=== PATIENT | female | born 1975 | race Caucasian/White ===

== ENCOUNTER 2017-05-25 10:05 | Emergency (ER) | payer OTHER ==
[2017-05-25] MEDS ORDERED: ASPIRIN 81 MG TABLET, CHEWABLE PO ONE (10:31)
--- NOTE | 2017-05-25 10:37 | ER Document Report ---
ED Medical Screen (RME) - General Mode of Arrival: Wheelchair Information source: Patient TRAVEL OUTSIDE OF THE [place] IN LAST 30 DAYS: No - HPI Patient complains to provider of: Chest Pain Onset: This morning Onset/Duration: Sudden, Constant Quality of pain: Other - Tight Associated Symptoms: Other - see notes above Exacerbated by: Deep breathing, Other - palpation - Related Data Smoking: Non-smoker Frequency of alcohol use: Occasional Drug Abuse: None <AWILDA VERA - Last Filed: 05/25/17 11:19> <RENETTA CORONEL - Last Filed: 05/25/17 11:20> - General Chief Complaint: Chest Pain Stated Complaint: CHEST PAIN DIFFICULTY BREATHING Time Seen by Provider: 05/25/17 10:25 Notes: 42 year old female with history of asthma presents to the ED complaining of sudden onset tight and constant chest 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 Patient describes the pain as 'constrictive' when not palpated and sharp when palpated. Pain is exacerbated with deep breathing. Patient has had chest pain in the past (5-6 years ago), but not as severe as today. Patient denies history of blood clots, heart attack, or a pneumothorax. Patient went to Urgent Care prior to arrival and was told to come to the ED. Patient does not take any medication except for ibuprofen as needed. (AWILDA VERA) - Related Data Allergies/Adverse Reactions: erythromycin ethylsuccinate [From [facility] Allergy (Verified 09/24/15 20:13) Past Medical History - General Information source: Patient - Social History Cigarette use (# per day): No Chew tobacco use (# tins/day): No Frequency of alcohol use: Occasional Drug Abuse: None - Past Medical History Cardiac Medical History: Denies: Hx Hypercholesterolemia, Hx Hypertension Pulmonary Medical History: Reports: Hx Asthma Neurological Medical History: Reports: Hx Migraine Endocrine Medical History: Denies: Hx Diabetes Mellitus Type 2 Renal/ Medical History: Reports: Hx Kidney Stones. Denies: Hx Peritoneal Dialysis Past Surgical History: Reports: Hx Breast Surgery - Biopsy, Hx Section - x 2, Hx Hysterectomy, Hx Oral Surgery - wisdom teeth - Immunizations Hx Diphtheria, Pertussis, Tetanus Vaccination: Yes - < 5 yrs <AWILDA VERA - Last Filed: 05/25/17 11:19> Review of Systems - Review of Systems Constitutional: No symptoms reported EENT: No symptoms reported Cardiovascular: See HPI, Chest pain Respiratory: See HPI, Hurts to breathe Gastrointestinal: No symptoms reported Genitourinary: No symptoms reported Female Genitourinary: No symptoms reported Musculoskeletal: No symptoms reported Skin: No symptoms reported Hematologic/Lymphatic: No symptoms reported Neurological/Psychological: No symptoms reported -: Yes All other systems reviewed and negative <AWILDA VERA - Last Filed: 05/25/17 11:19> Physical Exam - General General appearance: Alert In distress: None - HEENT Head: Normocephalic, Atraumatic - Respiratory Respiratory status: No respiratory distress Chest status: Tender Breath sounds: Normal. No: Wheezing Chest palpation: Tender - Reproducible anterior chest wall pain. Patient states the pain is exacerbated and goes from tight to sharp when palpated. - Cardiovascular Rhythm: Regular Heart sounds: Normal auscultation Murmur: No Friction rub: No Gallop: None auscultated - Psychological Associated symptoms: Normal affect, Normal mood <AWILDA VERA - Last Filed: 05/25/17 11:19> - Vital signs Vitals: Temp Pulse Resp BP Pulse Ox 98.0 F 73 20 118/39 L 98 05/25/17 10:16 05/25/17 10:16 05/25/17 10:16 05/25/17 10:16 05/25/17 10:16 Course - Laboratory Result Diagrams: 05/25/17 10:51 05/25/17 10:51 <AWILDA VERA - Last Filed: 05/25/17 11:19> - Laboratory Result Diagrams: 05/25/17 10:51 05/25/17 10:51 <RENETTA CORONEL - Last Filed: 05/25/17 11:20> - Vital Signs Vital signs: Temp Pulse Resp BP Pulse Ox 98.0 F 73 20 118/39 L 98 05/25/17 10:16 05/25/17 10:16 05/25/17 10:16 05/25/17 10:16 05/25/17 10:16 Scribe Documentation - Scribe Written by Magnus:: Magnus Amaya, 05/25/2017 1057 acting as scribe for :: Hanh <AWILDA VERA - Last Filed: 05/25/17 11:19>
[2017-05-25 11:19] LABS: ABSOLUTE EOSINOPHILS # (AUTO) 0.1 10^3/uL (0.0-0.6); ABSOLUTE LYMPHOCYTES (AUTO) 1.6 10^3/uL (0.5-4.7); ABSOLUTE MONOCYTES (AUTO) 0.4 10^3/uL (0.1-1.4); ABSOLUTE NEUT (AUTO) 3.9 10^3/uL (1.7-8.2); BASOPHILS % (AUTO) 0.3 % (0-2); EOSINOPHILS % (AUTO) 1.8 % (0-6); HEMATOCRIT 44.1 % (36.0-47.0); HEMOGLOBIN 14.8 g/dL (12.0-15.5); HGB HCT DIFFERENCE 0.3; LYMPHOCYTES % (AUTO) 26.5 % (13-45); MEAN CORPUSCULAR HEMOGLOBIN 28.5 pg (27.0-33.4); MEAN CORPUSCULAR HGB CONC 33.6 g/dL (32.0-36.0); MEAN CORPUSCULAR VOLUME 85 fl (80-97); MONOCYTES % (AUTO) 6.7 % (3-13); RED BLOOD COUNT 5.21 10^6/uL (3.72-5.28); RED CELL DISTRIBUTION WIDTH 13.2 % (11.5-14.0); SEGMENTED NEUTROPHILS % (AUTO) 64.7 % (42-78)
[2017-05-25 11:31] LABS: D-DIMER 0.54 ug/mL (0.00-0.50)
--- NOTE | 2017-05-25 11:40 | RADIOLOGY REPORT (SQ) ---
EXAM DESCRIPTION: CHEST SINGLE VIEW COMPLETED DATE/TIME: 05/25/2017 11:27 am REASON FOR STUDY: chest pain, pleuritic in nature, h/o asthma COMPARISON: 09/24/2015 EXAM PARAMETERS: NUMBER OF VIEWS: One view. TECHNIQUE: Single frontal radiographic view of the chest acquired. RADIATION DOSE: NA LIMITATIONS: None. FINDINGS: LUNGS AND PLEURA: No opacities, masses or pneumothorax. No pleural effusion. MEDIASTINUM AND HILAR STRUCTURES: No masses. Contour normal. HEART AND VASCULAR STRUCTURES: Heart normal in size. Normal vasculature. BONES: No acute findings. HARDWARE: None in the chest. OTHER: No other significant finding. IMPRESSION: NO ACUTE RADIOGRAPHIC FINDING IN THE CHEST. TECHNICAL DOCUMENTATION: JOB ID: [id number]
[2017-05-25 11:46] LABS: ALANINE AMINOTRANSFERASE 106 U/L (9-52); ALBUMIN 4.5 g/dL (3.5-5.0); ALKALINE PHOSPHATASE 93 U/L (38-126); ANION GAP 13 (5-19); ASPARTATE AMINO TRANSFERASE 51 U/L (14-36); BILIRUBIN,DIRECT 0.4 mg/dL (0.0-0.4); BILIRUBIN,TOTAL 0.4 mg/dL (0.2-1.3); BLOOD UREA NITROGEN 15 mg/dL (7-20); CALCIUM 9.7 mg/dL (8.4-10.2); CARBON DIOXIDE 26 mmol/L (22-30); CHLORIDE 107 mmol/L (98-107); CREATINE KINASE 91 U/L (30-135); CREATININE RESULT 0.71 mg/dL (0.52-1.25); GLUCOSE 91 mg/dL (75-110); LIPASE 95.3 U/L (23-300); POTASSIUM 4.1 mmol/L (3.6-5.0); SODIUM 146.1 mmol/L (137-145); TOTAL PROTEIN 7.6 g/dL (6.3-8.2)
[2017-05-25 11:51] LABS: ADD ON TESTING BLD IN LAB ACKNOWLEDGE
[2017-05-25 11:55] LABS: CREATINE KINASE MB 1.27 ng/mL (<4.55)
[2017-05-25 11:56] LABS: TROPONIN I < 0.012 ng/mL
[2017-05-25] MEDS ORDERED: NORMAL SALINE 1000 ML 1,000 ML IV ONE (12:19)
--- NOTE | 2017-05-25 12:30 | ER Document Report ---
ED Cardiac - General Chief Complaint: Chest Pain Stated Complaint: CHEST PAIN DIFFICULTY BREATHING Time Seen by Provider: 05/25/17 10:25 Mode of Arrival: Wheelchair Information source: Patient TRAVEL OUTSIDE OF THE [place] IN LAST 30 DAYS: No - HPI Patient complains to provider of: Chest pain, Chest tightness Use of: denies: Alcohol, Amphetamines, Bath salts, Caffeine, Cocaine, Decongestants, Other Was the onset of pain: Sudden When did pain begin: 0800 Is the pain a: New problem Chest pain location: Substernal Quality of pain: Pressure, Sharp, Tightness Chest pain radiation location: denies: Left jaw, Left arm, Left shoulder, Right jaw, Right arm, Right shoulder, Back, Neck, None Severity now: Mild Pain level currently: 2 Chest pain precipitating factors: none Cardiac risk factors: None Positive cardiac history: No Associated symptoms: Lightheaded - once, prior to arrival Exacerbated by: Deep breaths. denies: Denies, Sitting, Standing, Activity, Emotional stress, Coughing, Torso movement, Lying flat, Other Relieved by: Nothing - pt not aware of anything that helps. has not had any nitro or antacids. Similar symptoms previously: No Recently seen / treated by doctor: No Notes: P t is sexually active. H/o total hysterectomy >10 years ago - Related Data Allergies/Adverse Reactions: erythromycin ethylsuccinate [From [facility].] Allergy (Verified 09/24/15 20:13) Past Medical History - General Information source: Patient - Social History Smoking Status: Never Smoker Cigarette use (# per day): No Chew tobacco use (# tins/day): No Frequency of alcohol use: Occasional Drug Abuse: None Family History: Reviewed & Not Pertinent Patient has suicidal ideation: No - Past Medical History Cardiac Medical History: Denies: Hx Hypercholesterolemia, Hx Hypertension Pulmonary Medical History: Reports: Hx Asthma Neurological Medical History: Reports: Hx Migraine Endocrine Medical History: Denies: Hx Diabetes Mellitus Type 2 Renal/ Medical History: Reports: Hx Kidney Stones. Denies: Hx Peritoneal Dialysis Past Surgical History: Reports: Hx Breast Surgery - Biopsy, Hx Section - x 2, Hx Hysterectomy, Hx Oral Surgery - wisdom teeth - Immunizations Hx Diphtheria, Pertussis, Tetanus Vaccination: Yes - < 5 yrs Review of Systems - Review of Systems Notes: REVIEW OF SYSTEMS: CONSTITUTIONAL : Denies fever, chills, or sweats. Denies recent illness. EENT: Denies eye, ear, throat, or mouth pain or symptoms. Denies nasal or sinus congestion or discharge. Denies throat, tongue, or mouth swelling or difficulty swallowing. CARDIOVASCULAR: see hpi RESPIRATORY: Denies cough, cold, or chest congestion. Denies shortness of breath, difficulty breathing, or wheezing. GASTROINTESTINAL: Denies abdominal pain or distention. Denies nausea, vomiting , or diarrhea. Denies blood in vomitus, stools, or per rectum. Denies black, tarry stools. Denies constipation. GENITOURINARY: Denies difficulty urinating, painful urination, burning, frequency, blood in urine, or discharge. FEMALE GENITOURINARY: Denies vaginal bleeding, heavy or abnormal periods, irregular periods. Denies vaginal discharge or odor. MUSCULOSKELETAL: Denies back or neck pain or stiffness. Denies joint pain or swelling. SKIN: Denies rash, lesions or sores. NEUROLOGICAL: Denies confusion or altered mental status. Denies passing out or loss of consciousness. Denies dizziness or lightheadedness. Denies headache. Denies weakness or paralysis or loss of use of either side. Denies problems with gait or speech. Denies sensory loss, numbness, or tingling. Denies seizures. PSYCHIATRIC: Denies anxiety or stress. Denies depression, suicidal ideation, or homicidal ideation. ALL OTHER SYSTEMS REVIEWED AND NEGATIVE. Dictation was performed using [employer] voice recognition software Physical Exam - Vital signs Vitals: Temp Pulse Resp BP Pulse Ox 98.0 F 73 20 118/39 L 98 05/25/17 10:16 05/25/17 10:16 05/25/17 10:16 05/25/17 10:16 05/25/17 10:16 Notes: PHYSICAL EXAMINATION: GENERAL: Well-appearing, well-nourished and in no acute distress. A&Ox4 HEAD: Atraumatic, normocephalic. EYES: Pupils equal round and reactive to light, extraocular movements intact, sclera anicteric, conjunctiva are normal. ENT: Nares patent and without discharge. oropharynx clear without exudates. No tonsilar hypertrophy or erythema. Moist mucous membranes. No sinus tenderness. NECK: Normal range of motion, supple without lymphadenopathy. No rigidity/ meningismus. Non-tender. LUNGS: Breath sounds clear to auscultation bilaterally and equal. No wheezes rales or rhonchi. HEART: Regular rate and rhythm without murmurs, rubs, gallops. Chest: + tenderness to the anterior chest wall, pt describes this as the sharp pain, but different than the tightness in the chest. ABDOMEN: Soft, nontender, nondistended abdomen. No guarding, no rebound. No masses appreciated. Normal bowel sounds present. No CVA tenderness bilaterally. Musculoskeletal: FROM to passive/active. Strength 5+/5. Rommel neg b/l. Extremities: No cyanosis, clubbing, or edema b/l. Peripheral pulses 2+. Capillary refill less than 3 seconds. NEUROLOGICAL: Cranial nerves grossly intact. Normal speech, normal gait. Normal sensory, motor exams PSYCH: Normal mood, normal affect. SKIN: Warm, Dry, normal turgor, no rashes or lesions noted. Course - Re-evaluation Re-evalutation: 05/25/17 12:[address] Reed, CTA ordered d/t sx's and elevated dimer. 05/25/17 14:26 Patient is an afebrile, well-hydrated, 42-year-old female who presents the ED with chest wall pain and chest pain not otherwise specified. Vitals are stable. PE is otherwise unremarkable. Patient has a heart score of 0. D- dimer did come back slightly elevated so CTA was ordered and showed unremarkable for any acute pathology. CBC, CMP otherwise unremarkable. Cardiac enzymes 2 and EKG 2 were unremarkable for any acute pathology or changes. Patient's condition currently stable with no new concerns or complaints. Her serum qualitative hCG did come back positive with a quantity of 4.56 HCG. patient did have a total hysterectomy over 10 years ago. Reviewed with patient that she will need an evaluation with [facility] to further investigate. Low suspicion/risk for any ACS, PE, pneumothorax, pericarditis, dissection at this time. Patient is aware that her condition can change from initial presentation and she needs to monitor symptoms closely and seek medical attention with any acute changes. Naproxen Rx given today. Conservative measures for symptoms otherwise. Recheck with your PCM in 2-3 days. Recheck with the [facility] as well. Return to the ED with any worsening/concerning symptoms otherwise as reviewed discharge. Patient is in agreement. - Vital Signs Vital signs: Temp Pulse Resp BP Pulse Ox 98.0 F 73 17 117/91 H 100 05/25/17 10:16 05/25/17 10:16 05/25/17 13:01 05/25/17 13:00 05/25/17 13:01 - Laboratory Result Diagrams: 05/25/17 10:51 05/25/17 10:51 Laboratory results interpreted by me: 05/25/17 05/25/17 05/25/17 10:51 10:51 10:51 D-Dimer 0.54 H Sodium 146.1 H AST 51 H ALT 106 H Serum HCG, Qual POSITIVE H Discharge - Discharge Clinical Impression: Chest wall pain Chest pain, unspecified Qualifiers: Chest pain type: unspecified Qualified Code(s): R07.9 - Chest pain, unspecified Condition: Stable Disposition: HOME, SELF-CARE Instructions: Chest Wall Pain ([facility]), Chest Pain of Unclear Cause ([facility]), Anti- Inflammatory Medication ([facility]) Additional Instructions: Rest, Ice Tylenol/ibuprofen as needed Light stretches daily Moist heat and massage may help F/u with your PCP in 2-3 days for a recheck Recheck with OBGYN in 3-5 days. Return to the ED with any worsening symptoms and/or development of fever, headache, chest pain, palpitations, syncope, shortness of breath, trouble breathing, abdominal pain, n/v/d, muscle weakness/paralysis, numbness/tingling, worsening pain, or other worsening symptoms that are concerning to you. Prescriptions: Naproxen 500 mg PO BID PRN #30 tablet PRN Reason: Forms: Elevated Blood Pressure, Return to Work Referrals: JOSE J MARCH MD [ACTIVE STAFF] - Follow up in 3-5 days [facility] [Provider Group] - Follow up in 3-5 days
--- NOTE | 2017-05-25 14:24 | RADIOLOGY REPORT (SQ) ---
EXAM DESCRIPTION: CTA CHEST COMPLETED DATE/TIME: 05/25/2017 1:54 pm REASON FOR STUDY: chest pain, elevated dimer. COMPARISON: None. TECHNIQUE: CT scan of the chest performed using helical scanning technique with dynamic intravenous contrast injection. Images reviewed with lung, soft tissue and bone windows. Reconstructed coronal and sagittal MPR images reviewed. Additional 3 dimensional post-processing performed to develop Maximal Intensity Projection images (TX P). All images stored on PACS. All CT scanners at this facility use dose modulation, iterative reconstruction, and/or weight based d osing when appropriate to reduce radiation dose to as low as reasonably achievable (ALARA). [facility]: Dose Right [facility]: CareDose [facility]: Dose Right [facility]: Teradose 4D [facility]: Zuvvu CONTRAST TYPE AND DOSE: contrast/concentration: Isovue 370.00 mg/ml; Total Contrast Delivered: 82.0 ml; Total Saline Delivered: 110.0 ml Contrast bolus optimized for the pulmonary arteries. Not diagnostic for the aorta. RENAL FUNCTION: Creatinine 0.7 BUN 15 RADIATION DOSE: Up-to-date CT equipment and radiation dose reduction techniques were employed. CTDIv ol: 16.5 - 40.0 mGy. DLP: 1428 mGy-cm. . LIMITATIONS: None. FINDINGS: LUNGS AND PLEURA: No masses, infiltrates, pneumothorax. No pleural effusions, calcificati ons. AORTA AND GREAT VESSELS: No aneurysm. Contrast bolus not optimized for the aorta. HEART: No pericardial effusion. No significant coronary artery calcifications. PULMONARY ARTERIES: No emboli visualized in the main pulmonary arteries or the segmental branches. HILAR AND MEDIASTINAL STRUCTURES: No identified masses or abnormal nodes. HARDWARE: None in the chest. UPPER ABDOMEN: No significant findings. Limited exam. THYROID AND OTHER SOFT TISSUES: No masses. No adenopathy. BONES: No acute or significant finding. 3D MIPS: Confirm above findings. OTHER: No other significant finding. IMPRESSION: NORMAL CTA OF THE CHEST. NO PULMONARY EMBOLI. COMMENT: Quality ID # [id number]: Final reports with documentation of one or more dose reduction techniques (e.g., Automated exposure control, adjustment of the mA and/or kV according to patient size, use of iterative reconstruction technique) TECHNICAL DOCUMENTATION: JOB ID: [id number] [email or web address] All Rights Reserved
[2017-05-25 14:52] VITALS: BP 126/84
--- NOTE | 2017-05-25 19:50 | EKG REPORT ---
SEVERITY:- NORMAL ECG - SINUS RHYTHM : Confirmed by: Mu Huang MD 25-May-2017 19:49:33
--- NOTE | 2017-05-25 19:50 | EKG REPORT ---
SEVERITY:- NORMAL ECG - SINUS RHYTHM : Confirmed by: Mu Huang MD 25-May-2017 19:49:25
== END 2017-05-25 14:53 | disposition home or self-care (01) ==
LOC: ER 10:05
DX: R07.89 Other chest pain (principal); R42 Dizziness and giddiness; J45.909 Unspecified asthma, uncomplicated; Z88.1 Allergy status to other antibiotic agents; Z90.710 Acquired absence of both cervix and uterus; Z32.01 Encounter for pregnancy test, result positive
CPT/HCPCS: 93005; 99285; 96360; 36415; 82553; 82550; 84702; 83690; 84703; 85025; 85610; 80053; 84484; 85379; 71010; 71275; 93010; J7030